=== PATIENT | male | born 1990 | race Caucasian/White ===

== ENCOUNTER 2018-02-24 19:12 | Inpatient (IN) | payer OTHER ==
[2018-02-24] MEDS ORDERED: NACL 0.9% 3 ML SYG IV (20:30)
[2018-02-24] MEDS: ONDANSETRON 4 MG INJ IV (20:42)
[2018-02-24] MEDS: LORAZEPAM 4 MG/ML VIAL IV (20:43)
[2018-02-24] MEDS: SOD CHLORIDE 0.9% 1,000 ML IV (20:56)
[2018-02-24 21:02] LABS: ABNORMAL IP MESSAGE 1; HEMATOCRIT 33.2 % (42.0-52.0); HEMOGLOBIN 10.7 g/dl (14.0-18.0); MEAN CORPUSCULAR HEMOGLOBIN 28.6 pg (29.0-33.0); MEAN CORPUSCULAR HGB CONC 32.2 g/dl (32.0-37.0); MEAN CORPUSCULAR VOLUME 88.8 fl (82.0-101.0); MEAN PLATELET VOLUME 12.9 fl (7.4-10.4); POSITIVE DIFF @See below; RED BLOOD COUNT 3.74 10^6/ul (4.70-6.10); RED CELL DISTRIBUTION WIDTH 15.4 % (11.5-14.5)
[2018-02-24 21:02] LABS: WHITE BLOOD COUNT 4.1 10^3/ul (4.8-10.8)
[2018-02-24 21:08] LABS: ADD MAN DIFF? YES; PLATELET COUNT 15 10^3/UL (140-415)
[2018-02-24 21:09] LABS: PATH REVIEW? YES
[2018-02-24 21:18] LABS: ALANINE AMINOTRANSFERASE 71 IU/L (13-69); ALBUMIN 4.7 g/dl (3.3-4.9); ALBUMIN/GLOBULIN RATIO 0.97; ALKALINE PHOSPHATASE 123 IU/L (42-121); ANION GAP 13 (5-13); ASPARTATE AMINO TRANSFERASE 145 IU/L (15-46); BILIRUBIN,INDIRECT 1.9 mg/dl (0-1.1); BILIRUBIN,TOTAL 1.9 mg/dl (0.2-1.3); BLOOD UREA NITROGEN 5 mg/dl (7-20); CARBON DIOXIDE 22 mmol/L (21-31); CHLORIDE 107 mmol/L (97-110); Estimated GFR > 60 mL/min (>60); GLUCOSE 82 mg/dl (70-220); POTASSIUM 3.9 mmol/L (3.5-5.1); SODIUM 142 mmol/L (135-144); TOTAL PROTEIN 9.5 g/dl (6.1-8.1)
[2018-02-24 21:24] LABS: CHOL/HDL RATIO 2.7 RATIO; CHOLESTEROL 266 mg/dl (100-200); HDL CHOLESTEROL 98 mg/dl (30-63); LDL CHOLESTEROL,CALCULATED 150 mg/dl; TRIGLYCERIDES 88 mg/dl (0-149)
[2018-02-24 21:24] LABS: MAGNESIUM 2.2 mg/dl (1.7-2.5)
[2018-02-24 21:26] LABS: INR 1.23; PROTIME 15.7 Sec (11.9-14.9); PT RATIO 1.2
[2018-02-24 21:27] LABS: PARTIAL THROMBOPLASTIN TIME 39.9 Sec (23.0-35.0)
[2018-02-24] MEDS: THIAMINE 200 MG INJ IM (21:30)
[2018-02-24] MEDS ORDERED: LORAZEPAM 4 MG/ML VIAL IV (22:00)
[2018-02-24 22:23] LABS: BASOPHILS % (M) 1 % (0-2); EOSINOPHILS % (M) 2 % (0-7); GIANT THROMBO% (M) 1 % (0-0); LYMPHOCYTES #M 1.1 10^3/ul (0.8-2.9); LYMPHOCYTES % (M) 29 % (15-51); MONOCYTE #M 0.1 10^3/ul (0.3-0.9); MONOCYTES % (M) 3 % (0-11); REACTIVE LYMPHOCYTES% (M) 1 % (0-0); SEGMENTED NEUTROPHILS (M) % 64 % (39-77); SMUDGE%M 6 % (0-0)
[2018-02-24] MEDS: FOLIC ACID 1 MG TAB PO (22:51)
[2018-02-24] MEDS: CHLORDIAZEPOXIDE 25 MG CAP PO (22:51)
[2018-02-25] MEDS ORDERED: LORAZEPAM 4 MG/ML VIAL IV (00:30)
[2018-02-25] MEDS: OCTREOTIDE 50 MCG in SOD CHLORIDE 0.9% 50 ML IVPB (00:31)
[2018-02-25] MEDS: OCTREOTIDE 1 MG in DEXTROSE 5% 95 ML IV ×2 (00:31→18:09)
[2018-02-25] MEDS: PANTOPRAZOLE IV 80 MG in SOD CHLORIDE 0.9% 100 ML IVPB (00:52)
[2018-02-25] MEDS: ONDANSETRON 4 MG INJ IV ×2 (02:44→14:25)
[2018-02-25] MEDS: LORAZEPAM 4 MG/ML VIAL IV ×2 (05:30→21:03)
[2018-02-25] MEDS: PANTOPRAZOLE 40 MG INJ IV (05:31)
[2018-02-25 06:09] LABS: ADD MAN DIFF? NO
[2018-02-25 06:21] LABS: HAAIG REFLEX REFLEX FILED
[2018-02-25 06:24] LABS: WHITE BLOOD COUNT 4.2 10^3/ul (4.8-10.8)
[2018-02-25 06:24] LABS: ABNORMAL IP MESSAGE 1; HEMOGLOBIN 10.3 g/dl (14.0-18.0); LYMPHOCYTES # 0.7 10^3/ul (0.8-2.9); LYMPHOCYTES % 16.7 % (15.0-51.0); MEAN CORPUSCULAR HEMOGLOBIN 29.5 pg (29.0-33.0); MEAN CORPUSCULAR HGB CONC 33.2 g/dl (32.0-37.0); MEAN CORPUSCULAR VOLUME 88.8 fl (82.0-101.0); MEAN PLATELET VOLUME 11.1 fl (7.4-10.4); MONOCYTE # 0.4 10^3/ul (0.3-0.9); MONOCYTES % 9.5 % (0.0-11.0); NEUTROPHILS % 71.6 % (39.0-77.0); PLATELET COUNT 38 10^3/UL (140-415); POSITIVE DIFF @See below; RED BLOOD COUNT 3.49 10^6/ul (4.70-6.10); RED CELL DISTRIBUTION WIDTH 15.2 % (11.5-14.5)
[2018-02-25 07:27] LABS: HEPATITIS B SURFACE ANTIGEN NEGATIVE (NEGATIVE)
[2018-02-25 07:45] LABS: HEPATITIS B CORE ANTIBODY NEGATIVE (NEGATIVE); HEPATITIS C VIRAL ANTIBODY NEGATIVE (NEGATIVE)
[2018-02-25 07:45] LABS: HEPATITIS B SURFACE ANTIBODY POSITIVE (NEGATIVE)
[2018-02-25] MEDS: CHLORDIAZEPOXIDE 25 MG CAP PO ×3 (08:33→21:02)
[2018-02-25] MEDS: FOLIC ACID 1 MG TAB PO (08:33)
[2018-02-25] MEDS: METOCLOPRAMIDE 10 MG INJ IV ×2 (08:34→21:03)
[2018-02-25] MEDS: THIAMINE 200 MG INJ IM (08:34)
[2018-02-25] MEDS ORDERED: FOLIC ACID 1 MG TAB PO (12:00)
[2018-02-25 13:40] LABS: ADD MAN DIFF? NO
[2018-02-25 13:43] LABS: WHITE BLOOD COUNT 3.3 10^3/ul (4.8-10.8)
[2018-02-25 13:43] LABS: ABNORMAL IP MESSAGE 1; BASOPHILS % 1.2 % (0.0-2.0); EOSINOPHILS # 0.1 10^3/ul (0.0-0.5); EOSINOPHILS % 1.5 % (0.0-7.0); HEMATOCRIT 31.4 % (42.0-52.0); HEMOGLOBIN 10.4 g/dl (14.0-18.0); LYMPHOCYTES # 0.7 10^3/ul (0.8-2.9); LYMPHOCYTES % 21.3 % (15.0-51.0); MEAN CORPUSCULAR HEMOGLOBIN 29.3 pg (29.0-33.0); MEAN CORPUSCULAR HGB CONC 33.1 g/dl (32.0-37.0); MEAN CORPUSCULAR VOLUME 88.5 fl (82.0-101.0); MEAN PLATELET VOLUME 9.6 fl (7.4-10.4); MONOCYTE # 0.4 10^3/ul (0.3-0.9); MONOCYTES % 11.9 % (0.0-11.0); NEUTROPHIL # 2.1 10^3/ul (1.6-7.5); NEUTROPHILS % 63.8 % (39.0-77.0); PLATELET COUNT 34 10^3/UL (140-415); POSITIVE DIFF @See below; RED BLOOD COUNT 3.55 10^6/ul (4.70-6.10); RED CELL DISTRIBUTION WIDTH 14.9 % (11.5-14.5)
[2018-02-25] MEDS: CYANOCOBALAMIN 500 MCG TAB PO (14:25)
[2018-02-25 16:27] LABS: ADD MAN DIFF? NO
[2018-02-25 16:30] LABS: ABNORMAL IP MESSAGE 1; BASOPHILS % 0.9 % (0.0-2.0); EOSINOPHILS # 0.1 10^3/ul (0.0-0.5); EOSINOPHILS % 2.4 % (0.0-7.0); HEMATOCRIT 31.7 % (42.0-52.0); HEMOGLOBIN 10.5 g/dl (14.0-18.0); LYMPHOCYTES # 0.6 10^3/ul (0.8-2.9); LYMPHOCYTES % 19.5 % (15.0-51.0); MEAN CORPUSCULAR HEMOGLOBIN 29.2 pg (29.0-33.0); MEAN CORPUSCULAR HGB CONC 33.1 g/dl (32.0-37.0); MEAN CORPUSCULAR VOLUME 88.1 fl (82.0-101.0); MONOCYTE # 0.5 10^3/ul (0.3-0.9); NEUTROPHIL # 2.1 10^3/ul (1.6-7.5); NEUTROPHILS % 62.9 % (39.0-77.0); POSITIVE DIFF @See below
[2018-02-25 16:30] LABS: WHITE BLOOD COUNT 3.3 10^3/ul (4.8-10.8)
[2018-02-25 16:34] LABS: MEAN PLATELET VOLUME 11.8 fl (7.4-10.4); PLATELET COUNT 35 10^3/UL (140-415)
[2018-02-25] MEDS: SOD CHLORIDE 0.9% 1,000 ML IV (16:36)
[2018-02-25] MEDS: MIRTAZAPINE 15 MG TAB PO (21:02)
[2018-02-26] MEDS: PANTOPRAZOLE 40 MG INJ IV (06:06)
[2018-02-26 06:30] LABS: ADD MAN DIFF? NO
[2018-02-26] MEDS: METOCLOPRAMIDE 10 MG INJ IV ×2 (06:32→21:13)
[2018-02-26] MEDS: LORAZEPAM 4 MG/ML VIAL IV ×3 (06:32→21:13)
[2018-02-26 06:33] LABS: ABNORMAL IP MESSAGE 1; BASOPHILS % 0.8 % (0.0-2.0); EOSINOPHILS # 0.1 10^3/ul (0.0-0.5); EOSINOPHILS % 3.5 % (0.0-7.0); HEMATOCRIT 33.6 % (42.0-52.0); HEMOGLOBIN 11.1 g/dl (14.0-18.0); LYMPHOCYTES # 0.8 10^3/ul (0.8-2.9); LYMPHOCYTES % 19.6 % (15.0-51.0); MEAN CORPUSCULAR HEMOGLOBIN 29.5 pg (29.0-33.0); MEAN CORPUSCULAR VOLUME 89.4 fl (82.0-101.0); MEAN PLATELET VOLUME 10.7 fl (7.4-10.4); MONOCYTE # 0.4 10^3/ul (0.3-0.9); MONOCYTES % 10.8 % (0.0-11.0); NEUTROPHIL # 2.6 10^3/ul (1.6-7.5); PLATELET COUNT 32 10^3/UL (140-415); POSITIVE DIFF @See below; RED BLOOD COUNT 3.76 10^6/ul (4.70-6.10); RED CELL DISTRIBUTION WIDTH 15.1 % (11.5-14.5)
[2018-02-26 06:51] LABS: INR 1.26; PT RATIO 1.3
[2018-02-26 07:17] LABS: ALANINE AMINOTRANSFERASE 56 IU/L (13-69); ALBUMIN 4.6 g/dl (3.3-4.9); ALBUMIN/GLOBULIN RATIO 1.12; ALKALINE PHOSPHATASE 95 IU/L (42-121); ANION GAP 14 (5-13); ASPARTATE AMINO TRANSFERASE 114 IU/L (15-46); BILIRUBIN,INDIRECT 2.9 mg/dl (0-1.1); BILIRUBIN,TOTAL 2.9 mg/dl (0.2-1.3); BLOOD UREA NITROGEN 10 mg/dl (7-20); CALCIUM 9.4 mg/dl (8.4-10.2); CARBON DIOXIDE 26 mmol/L (21-31); CHLORIDE 99 mmol/L (97-110); Estimated GFR > 60 mL/min (>60); GLUCOSE 109 mg/dl (70-220); POTASSIUM 4.1 mmol/L (3.5-5.1); SODIUM 139 mmol/L (135-144); TOTAL PROTEIN 8.7 g/dl (6.1-8.1)
[2018-02-26 08:26] LABS: ALPHA FETOPROTEIN 5.61 IU/L (0.00-7.21)
[2018-02-26] MEDS: CYANOCOBALAMIN 500 MCG TAB PO (10:31)
[2018-02-26] MEDS: CHLORDIAZEPOXIDE 25 MG CAP PO ×4 (10:31→21:31)
[2018-02-26] MEDS: FOLIC ACID 1 MG TAB PO (10:31)
[2018-02-26] MEDS: THIAMINE 200 MG INJ IM (10:31)
[2018-02-26] MEDS: OCTREOTIDE 1 MG in DEXTROSE 5% 95 ML IV (12:46)
[2018-02-26] MEDS: SOD CHLORIDE 0.9% 1,000 ML IV (12:46)
[2018-02-26] MEDS: MIRTAZAPINE 15 MG TAB PO (21:13)
[2018-02-26 23:49] LABS: TYPE AND SCREEN 1 1
[2018-02-27] MEDS: LORAZEPAM 4 MG/ML VIAL IV ×2 (04:24→08:24)
[2018-02-27] MEDS: PANTOPRAZOLE 40 MG INJ IV (06:23)
[2018-02-27 06:41] LABS: WHITE BLOOD COUNT 4.5 10^3/ul (4.8-10.8)
[2018-02-27 06:41] LABS: ABNORMAL IP MESSAGE 1; HEMATOCRIT 32.6 % (42.0-52.0); HEMOGLOBIN 10.6 g/dl (14.0-18.0); MEAN CORPUSCULAR HEMOGLOBIN 29.1 pg (29.0-33.0); MEAN CORPUSCULAR HGB CONC 32.5 g/dl (32.0-37.0); MEAN CORPUSCULAR VOLUME 89.6 fl (82.0-101.0); MEAN PLATELET VOLUME 10.7 fl (7.4-10.4); POSITIVE DIFF @See below; RED BLOOD COUNT 3.64 10^6/ul (4.70-6.10); RED CELL DISTRIBUTION WIDTH 15.7 % (11.5-14.5)
[2018-02-27] MEDS ORDERED: PROPOFOL 200 MG INJ (07:00)
[2018-02-27 07:32] LABS: ADD MAN DIFF? YES; PLATELET COUNT 45 10^3/UL (140-415)
[2018-02-27] MEDS: SOD CHLORIDE 0.9% 1,000 ML IV (08:07)
[2018-02-27] MEDS: CHLORDIAZEPOXIDE 25 MG CAP PO ×2 (08:23→12:47)
[2018-02-27] MEDS: CYANOCOBALAMIN 500 MCG TAB PO (08:23)
[2018-02-27] MEDS: FOLIC ACID 1 MG TAB PO (08:24)
[2018-02-27] MEDS: THIAMINE 200 MG INJ IM (09:00)
[2018-02-27] MEDS: OCTREOTIDE 1 MG in DEXTROSE 5% 95 ML IV (11:06)
[2018-02-27] MEDS ORDERED: PROPOFOL 20 ML (11:47)
== END 2018-02-27 14:26 | disposition left against medical advice (07) | DRG 441 ==
LOC: TEL 19:12
PROC: 0DJ08ZZ Inspection of Upper Intestinal Tract, Via Natural or Artificial Opening Endoscopic (ICD-10-PCS; principal; 2018-02-27 11:00)
PROC: 30233N1 Transfusion of Nonautologous Red Blood Cells into Peripheral Vein, Percutaneous Approach (ICD-10-PCS; 2018-02-27 11:22)
DX: K76.6 Portal hypertension (principal); K31.89 Other diseases of stomach and duodenum; K29.71 Gastritis, unspecified, with bleeding; D61.818 Other pancytopenia; F10.129 Alcohol abuse with intoxication, unspecified; K70.30 Alcoholic cirrhosis of liver without ascites; F40.9 Phobic anxiety disorder, unspecified; E78.5 Hyperlipidemia, unspecified; K44.9 Diaphragmatic hernia without obstruction or gangrene
CPT/HCPCS: 36430; 71045; 76705; 80053; 80061; 82105; 83036; 83735; 84443; 85025; 85610; 85730; 86704; 86706; 86708; 86709; 86803; 86850; 86900; 86901; 87081; 87340